=== PATIENT | female | born 1940 | race Caucasian/White ===

== ENCOUNTER 2016-11-21 09:09 | Emergency (ER) | payer MEDICARE ==
[~2016-11-21] VITALS: Ht 154.9 cm; Wt 68.2 kg
[~2016-11-21 09:09] MED LIST: ASPI81TA3 PO; ATOR20TA65 PO; HYDR-3797 PO; LIT300 PO; LITH600C PO; OMEP20TA24 PO
[2016-11-21 09:17] VITALS: BP 134/91; PULSE 83; RESP 18; O2SAT 93
--- NOTE | 2016-11-21 09:21 | ED.REPORT ---
HPI-Trauma Multiple Date of Service Nov 21, 2016 ED Provider: Gibran Childs MD Pt is a 76 y/o female with a hx of bipolar and arthritis who reports to the ER via EMS with blunt head trauma due to a ground level fall just prior to arrival. Pt was walking down an incline and slipped, falling to the ground. She presents with a laceration to her right upper cheek. Pt denies LOC, weakness , numbness, tingling, double vision, vision loss, and is not on anticoagulants. She was able to ambulate on scene and did not sustain any other injuries. Nursing Notes Stated Complaint: GLF Chief Complaint: Multiple Trauma/Fall Nursing Notes Reviewed: Yes Allergies: Coded Allergies: lorazepam (Verified Adverse Reaction, Severe, EXTREME AGITATION, 11/21/16) prednisone (Verified Adverse Reaction, Mild, BLEEDING, 11/21/16) Scheduled Aspirin Chew (Aspirin Chew) 81 Mg Tablet 324 MG PO DAILY Atorvastatin Calcium (Atorvastatin Calcium) 20 Mg Tablet 40 MG PO HS Hydroxyzine Pamoate (HydrOXYzine Pamoate) 25 Mg Capsule 50 PO HS [place] Carbonate ([place] Carbonate) 300 Mg Cap 300 MG PO MORNING [place] Carbonate ([place] Carbonate) 600 Mg Capsule 600 MG PO HS Omeprazole Magnesium (Prilosec Otc) 20 Mg Tablet.dr 20 MG PO HS General Time Seen by Provider: 10:20 Chief Complaint Head pain/injury Hx Obtained From: Patient, EMS Arrived By: Ambulance Onset Occurred: 1 - 4 hours ago Symptom Duration: Since onset Location: : Head Severity: Current: Mild Severity: Maximum: Mild Recent Healthcare: No recent doctor visit, No recent hospitalization Similar Sx Previous: No Past Medical History Past Medical History Notes: PCP: Blair Griffin Past Medical History osteoarthritis bipolar disorder anxiety Reports: GERD, Hypertension, Transient ischemic attack Reports: Depression Past Surgical History hernia repair finger amputations Smoking History Former Smoker Social History Alcohol Use: Denies alcohol use Drug Use: Denies drug use Other Social History: Poor social support, Local resident Ambulatory Status Independent Review of Systems Constitutional: Denies: Chills, Weakness - generalized Eyes: Denies: Diplopia, Visual loss bilateral Hematologic: Reports Bleeding (laceration to right lateral brow) Neurologic: Denies: Change LOC, Dizziness, Lightheaded, Numbness, Vision change , Weakness Complete sys rev & neg: except as marked. Physical Exam Initial Vital Signs Vital Signs (First) Date Time Temp Pulse Resp B/P Pulse Ox O2 Delivery O2 Flow Rate FiO2 11/21/16 09:17 36.1 83 18 134/91 93 Room Air Initial VS: Reviewed Skin: Warm, Dry, No cyanosis Psychiatric: Mood/affect normal, Behavior normal, Normal thought content General/Constitutional: Awake, Alert, No acute distress, Well appearing Head / Eyes: Normocephalic, PERRL, EOMI No signs of trauma to scalp. Superficial 1cm laceration to right lateral brow, dried blood, no foreign body. Dried blood below right eye. Midface is stable to compresion. Neck: Atraumatic, Supple, Full range of motion, No swelling, Non-tender, No midline vertebral tend, No crepitus No midline cervical tenderness, deformities, or no step offs Respiratory / Chest: Atraumatic, Breath sounds NL, Breath sounds = bilat, No respiratory distress, No rales, No rhonchi, No wheezing, No stridor, No chest tenderness, No chest wall deformity, No crepitus Cardiovascular: Heart rate NL, Regular rhythm, Heart sounds NL, No gallop, No murmurs, No rubs, Pulses = bilaterally Abdomen: Atraumatic, Soft, Non-tender, No guarding, No rebound, No distention Back: Atraumatic, Non-tender, No midline vertebral tend Neurologic: Oriented X3, Speech NL, No motor deficits, No sensory deficits ENT: Atraumatic (no intraoral trauma), Airway patent Mouth: Positive: Mucous membranes dry (mild) Upper Extremity / MS: No swelling, Non-tender, No deformity, Neurologic intact , Vascular intact Lower Extremity / Pelvis / MS: No swelling (no calf swelling), Non-tender (no calf swelling), No deformity, Neurologic intact, Vascular intact Procedures Laceration Management Time: 10:27 Procedure Performed by: ED physician Consent / Setup / Site Prep: Consent from patient, Time-out performed, Hand hygiene observed Location of Wound: right lateral brow Wound Length: 1 cm Wound Preparation: Normal saline Debridement: None Irrigation: Copious Foreign Body Explore / Removal: Explored for foreign body Repair Skin: Dermabond Closure Layers: 1 Post-Procedure / Complications: No complications, Condition improved, Tolerated procedure well, Patient stable Re-Eval/Medical Decision Med Decision/Clinical Course In summary, the patient is a 76-year-old female with a history of bipolar disorder on lithium but otherwise in generally excellent health who presents to the emergency department for evaluation of a laceration to her right brow that she sustained after slipping on an incline and striking her head. She did not lose consciousness and she has been alert/awake/oriented since the injury. She is not on any blood thinners. Examination reveals a superficial laceration to her right brow without any evidence of bony injury or deformity. Extraocular movements are intact and there is no evidence of ocular trauma. There is no evidence of significant head trauma nor did she have any neurologic deficits on complete neurologic examination. She is not on blood thinners and I do not feel that neuro imaging is indicated. The patient's pain was treated with Tylenol and her tetanus status was updated. The wound was copiously irrigated with sterile saline. There were no foreign bodies present and there was no evidence of neurovascular injury. The wound was closed using glue as documented above. She remained stable and in no apparent distress. At this time, I feel that she is appropriate for discharge home. The patient was provided with follow-up and return precautions and discharged in good condition. Re-Evaluation/Progress : Time of Eval: 10:31 Patient Status: Condition improved Re-Evaluation/Progress Note: Laceration procedure performed. Informed pt of plan for treatment. Pt understands and agrees with plan for treatment. F/U and RTER warnings given. All questions addressed. Counseled Regarding: Diagnosis, Need for follow-up, When/why to return to ED Discharge & Departure Impression: Primary Impression: Fall from ground level Additional Impressions: Minor head injury Encounter type: initial encounter Qualified Code: S00.90XA - Unspecified superficial injury of unspecified part of head, initial encounter Facial laceration Encounter type: initial encounter Qualified Code: S01.81XA - Laceration without foreign body of other part of head, initial encounter Disposition: Home Discharge Condition All VS Reviewed: Yes Condition: Stable Additional Instructions: Thank you for seeking care at emergency room. You were seen today for a laceration. This was cleaned and repaired with skin glue. Our primary goal today in the ED was to evaluate you for any life-threatening conditions. Your evaluation was reassuring. You should follow-up with your primary doctor in the next week. You should return to the ED immediately if you develop swelling/redness, bleeding, discharge from the cut, fevers, headache, vomiting, cough, shortness of breath, chest pain, lightheadedness, weakness or any other concerning signs or symptoms. Thank you for letting us partake in your care today. Referrals: Gen Gimenez MD (PCP) Cassie Attestation Portion of this note were transcribed by Oriana Sommers and Iván Molina. I, Dr. Childs, personally performed the history, physical exam, and medical decision-making: I reviewed and confirmed the accuracy for the information in the transcribed note. Signed by: Cassie Mary, 11/21/2016 0100 Signed by: Cassie Michele, 11/21/2016 0141 copies to: Gen Gimenez MD, Beck O MD Nov 21, 2016 09:21 IVÁN MOLINA Nov 21, 2016 10:12 Oriana Sommers Nov 21, 2016 10:23
[2016-11-21] MEDS ORDERED: TdaP Vaccine 0.5 mL Inj IM ONE (10:15)
[2016-11-21 11:06] VITALS: BP 134/91; PULSE 83; RESP 18; O2SAT 93
== END 2016-11-21 11:07 | disposition home or self-care (01) ==
LOC: EDUNIT# 09:09 → EDBD 09:09 → SED 09:09
DX: S01.81XA Laceration without foreign body of other part of head, initial encounter (principal); W01.0XXA Fall on same level from slipping, tripping and stumbling without subsequent striking against object, initial encounter; Y93.01 Activity, walking, marching and hiking; Y92.9 Unspecified place or not applicable; Y99.8 Other external cause status; Z23 Encounter for immunization; K21.9 Gastro-esophageal reflux disease without esophagitis; I10 Essential (primary) hypertension; Z86.73 Personal history of transient ischemic attack (TIA), and cerebral infarction without residual deficits; Z87.891 Personal history of nicotine dependence; Z79.82 Long term (current) use of aspirin; Z88.8 Allergy status to other drugs, medicaments and biological substances

== ENCOUNTER 2016-12-14 20:13 | Inpatient (IN) | payer MEDICARE ==
[~2016-12-14] VITALS: Ht 157.5 cm; Wt 67.8 kg
[2016-12-14 20:18] VITALS: BP 140/88; PULSE 97; RESP 22; O2SAT 96
[2016-12-14 21:01] LABS: BASOPHILS % (AUTO) 0.1 % (0-3); EOSINOPHILS % (AUTO) 0 % (0-5); MONOCYTES % (AUTO) 2.2 % (4-12); Mean Corpuscular Volume 88.6 fL (81-100); NEUTROPHILS % (AUTO) 94.2 % (40-74); Platelet Count 331 bil/L (150-400)
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
[2016-12-14 21:24] LABS: TROPONIN T < 0.010 ug/L (0.0-0.011)
[2016-12-14] MEDS ORDERED: 0.9% Sodium Chloride 1,000 ML IV ONE ×2 (21:25→22:50)
[2016-12-14 21:33] LABS: Creatine Kinase 185 U/L (21-215)
--- NOTE | 2016-12-14 21:37 | DRSVH ---
PROCEDURE: X-RAY CHEST ONE VIEW, PORTABLE ([id number]) INDICATIONS: fall TECHNIQUE: One view of the chest was acquired. COMPARISON: [facility], CR, XR CHEST 2VW, 11/14/2015, 9:44. FINDINGS: Surgical changes and devices: None. Lungs and pleura: No pleural effusions or pneumothorax. Lungs are clear. Mediastinum: Mediastinal contours appear normal. Heart size is normal. Bones and chest wall: No suspicious bony lesions. Overlying soft tissues appear unremarkable. IMPRESSION: No acute process. Dictated by: Phyllis Ames M.D. on 12/14/2016 at 21:35 Approved by: Phyllis Ames M.D. on 12/14/2016 at 21:36
--- NOTE | 2016-12-14 21:39 | DRSVH ---
PROCEDURE: CT BRAIN WITHOUT CONTRAST ([id number]) INDICATIONS: fall, also confusion pre-fall TECHNIQUE: Noncontrast 4.5 mm thick angled axial sections acquired from the foramen magnum to the vertex, with c oronal reformats. COMPARISON: [facility], MR, MR STROKE PROTOCOL, 11/15/2015, 14:02. [facility] al, CT, CT BRAIN WO CON, 11/14/2015, 9:11. FINDINGS: Image quality: Excellent. CSF spaces: Basal cisterns are patent. No extra-axial fluid collections. The ventricles are symmet marlin in size and shape. Brain: No intracranial bleeds or masses. There is cerebral volume loss for age, with resultant vent ricular and sulcal prominence. There are periventricular and deep white matter chronic small vessel ischemic changes. There is intracranial internal carotid artery atherosclerosis. Skull and face: Calvarium and visualized facial bones appear intact, without suspicious lesions. Sinuses: Visualized sinuses and mastoids are clear. IMPRESSION: 1. No acute intracranial abnormality. 2. Volume loss and small vessel ischemic disease. Dictated by: Phyllis Ames M.D. on 12/14/2016 at 21:36 Approved by: Phyllis Ames M.D. on 12/14/2016 at 21:37
[2016-12-14 23:05] VITALS: BP 134/76; PULSE 90; RESP 18; O2SAT 95
[2016-12-14] MEDS ORDERED: Alum-Mag Hydrox-Simeth 30 mL Suspension PO PRN (23:10)
[2016-12-14] MEDS ORDERED: Polyethylene Glycol (PEG) 17 Gm Powder PO PRN (23:10)
[2016-12-14] MEDS ORDERED: Ondansetron 2 mg/mL 2 mL Inj IVPUSH PRN (23:10)
[2016-12-15] VITALS (10 sets, daily range): BP systolic 118–162; BP diastolic 72–87; PULSE 59–74; RESP 16–18; O2SAT 96–98
[2016-12-15 00:03] LABS: APPEARANCE,URINE CLEAR (CLEAR,HAZY); COLOR,URINE YELLOW (YELLOW); OCCULT BLOOD,URINE NEGATIVE (NEGATIVE); UROBILINOGEN,URINE NORMAL (NORMAL)
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
[2016-12-15] MEDS: Lactated Ringer's 1,000 ML IV SCH ×3 (01:11→20:54)
--- NOTE | 2016-12-15 06:18 | NUR ---
Admit Pt arrived on floor around 0045, A&O but forgetful. Pt unable to provide any medication information, denies any pain.
[2016-12-15] MEDS: Pantoprazole 20 mg ER24 Tablet PO SCH (09:30)
[2016-12-15 09:45] LABS: BASOPHILS % (AUTO) 0.3 % (0-3); EOSINOPHILS % (AUTO) 1.9 % (0-5); MONOCYTES % (AUTO) 6.7 % (4-12); Mean Corpuscular Hemoglobin 30.1 pg (27.0-35.0); Mean Corpuscular Volume 90.5 fL (81-100); NEUTROPHILS % (AUTO) 80.9 % (40-74); Platelet Count 330 bil/L (150-400)
[2016-12-15 10:29] LABS: Magnesium 2.4 mg/dL (1.6-2.6); Phosphorus 1.8 mg/dL (2.5-4.9)
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
--- NOTE | 2016-12-15 15:44 | NUR ---
Impulsive Pt is forgetful and impulsive, does not seem to have an understanding as to why she is in the hospital. Harper alarm in place; pt does not reliably use call light. Frequent rounding and visual checks made. Pt has splint and sling to RUE, pt requires frequent reminders to not use RUE. Pt intermittently mistrusting/suspicious of staff, but is pleasant. [place] level 1.2 this morning.
[2016-12-15] MEDS: hydrOXYzine Pamoate 25 mg Capsule PO SCH (20:47)
[2016-12-16] VITALS (7 sets, daily range): BP systolic 121–181; BP diastolic 67–92; PULSE 55–81; RESP 15–18; O2SAT 94–99
--- NOTE | 2016-12-16 04:19 | NUR ---
CONFUSION Patient cooperative with care, however very confused thus unreliable to use call light. Sitter at bedside through out shift, confirms cooperation and inability to consistently use call light. BP 181/85 at 0244, at rest with a pulse of 59. Night Hospitalist paged (cook page). Denial of CP, SOB, abdominal discomfort at this time.
[2016-12-16] MEDS: Lactated Ringer's 1,000 ML IV SCH (06:07)
[2016-12-16] MEDS: Pantoprazole 20 mg ER24 Tablet PO SCH (06:08)
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
[2016-12-16] MEDS ORDERED: QUET50TA55 PO (15:08)
--- NOTE | 2016-12-16 15:13 | NUR ---
Confusion/Agitation Pt increasingly agitated this shift, disoriented and confused. Sitter at bedside having increased difficulty redirecting and deescalating patient. Dr. Elizalde notified x2, is now coming to evaluate pt. UA ordered, NA-C sitting with pt states will send after next pt void.
--- NOTE | 2016-12-16 15:51 | DRSVH ---
PROCEDURE: X-RAY RIGHT ELBOW COMPLETE, MINIMUM THREE VIEWS ([id number]) INDICATIONS: elbow pain. ? fracture on earlier xray TECHNIQUE: 3 views of the elbow were acquired. COMPARISON: [facility], , XR ELBOW COMP MIN 3VW RT, 12/03/2016, 16:36. FINDINGS: Bones: No fractures or dislocations. No suspicious bony lesions. Specifically, no evidence of medi al epicondyle fracture. Soft tissues: No elbow joint effusion. No suspicious soft tissue calcifications. IMPRESSION: No acute fracture. No osseous lesion. If clinical suspicion and/or symptoms persist, fur ther assessment with repeat plainfilms, or advanced imaging (e.g., CT, MRI, or bone scan) may be help ful for further assessment. Dictated by: Phyllis Ames M.D. on 12/16/2016 at 15:48 Approved by: Phyllis Ames M.D. on 12/16/2016 at 15:49
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
[2016-12-16 16:02] LABS: APPEARANCE,URINE CLEAR (CLEAR,HAZY); COLOR,URINE YELLOW (YELLOW); OCCULT BLOOD,URINE TRACE (NEGATIVE); UROBILINOGEN,URINE NORMAL (NORMAL)
--- NOTE | 2016-12-16 19:26 | NUR ---
UA sent. Pt received Seroquel and lithium, as ordered by . Pt continues to be confused, no longer agitated.
[2016-12-16] MEDS: hydrOXYzine Pamoate 25 mg Capsule PO SCH (22:40)
[2016-12-17 05:25] VITALS: BP 181/96; PULSE 64; RESP 18; O2SAT 100
--- NOTE | 2016-12-17 05:36 | NUR ---
Mentation Pt has had sitter at bedside tonight for safety. Pt is more aware of her surroundings and situation, cooperative with all care, asking appropriately for assistance. Able to ambulate to BR with SBA. Observed sleeping most of night. Continue with sitter for safety, reassess in am.
[2016-12-17 06:05] LABS: Mean Corpuscular Volume 91.3 fL (81-100)
[2016-12-17 06:15] VITALS: BP 164/96
[2016-12-17] MEDS: Pantoprazole 20 mg ER24 Tablet PO SCH (06:17)
--- NOTE | 2016-12-17 09:48 | NUR ---
Social Work: TK TK signed
[2016-12-17 10:49] VITALS: BP 163/86; PULSE 59; RESP 18; O2SAT 95
[2016-12-17 11:15] VITALS: PULSE 70
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
[2016-12-17 18:08] VITALS: BP 158/92; PULSE 79; RESP 20; O2SAT 96
--- NOTE | 2016-12-17 18:36 | DRSVH ---
PROCEDURE: CT ELBOW RIGHT W/O CONTRAST ([id number]) INDICATIONS: right elbow pain, ? fracture on earlier xray TECHNIQUE: Noncontrast 1-1.5 mm axial sections were acquired through the elbow joint, with coronal and sagittal reformats. COMPARISON: [facility], CR, XR ELBOW COMP MIN 3VW RT, 12/16/2016, 15:24. FINDINGS: Image quality: Suboptimal course of under penetration and unconventional positioning. Bones: The study is nondiagnostic for subtle fracture. Soft tissues: No soft tissue mass or hematoma. IMPRESSION: Suboptimal examination. Cannot rule out subtle fractures. Recommend repeat examination af ter removing cast and reposition if clinically indicated. Dictated by: Lorenzo Hui M.D. on 12/17/2016 at 18:31 Transcribed by: XI on 12/17/2016 at 18:36 Approved by: Lorenzo Hui M.D. on 12/18/2016 at 8:23
--- NOTE | 2016-12-17 18:42 | NUR ---
Orientation Pt. pleasant and cooperative today. Confused and oriented x1-x2 depending on time of day. This morning she knew her name, and date, but she thought she was in an office building and did not know why she was here. In the afternoon, she could specify she was in the hospital, but thought it was "1987", then "2017".
[2016-12-17 20:00] VITALS: PULSE 79
[2016-12-17] MEDS: hydrOXYzine Pamoate 25 mg Capsule PO SCH (21:11)
[2016-12-18 00:14] VITALS: BP 126/79; PULSE 63; RESP 18; O2SAT 96
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
[2016-12-18 05:06] VITALS: BP 157/92; PULSE 60; RESP 18; O2SAT 95
--- NOTE | 2016-12-18 06:41 | NUR ---
Mentation Pt has had sitter at bedside tonight for safety. Pt continues to be impulsive; cooperative with all care. Able to ambulate to BR with SBA. Observed sleeping most of night. Continue with sitter for safety, reassess in am.
[2016-12-18 07:10] LABS: Vitamin B12 >1999 pg/mL (211-946)
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
--- NOTE | 2016-12-18 07:49 | PCM.DIMED ---
Discharge Instructions Date of Service Dec 18, 2016 Dates of Hospitalization Dec 14, 2016 at 23:23 Discharge Diagnosis Discharge Diagnosis Bipolar disorder with lithium toxicity Test Results Laboratory Tests 72 Hours Test 12/15/16 09:30 12/16/16 05:47 12/16/16 15:49 12/17/16 05:05 White Blood Count 11.4th/mm3 (3.8-10.1) 7.8th/mm3 (3.8-10.1) Red Blood Count 4.82mil/mm3 (3.90-5.20) 4.80mil/mm3 (3.90-5.20) Hemoglobin 14.5g/dL (12.0-15.6) 14.4g/dL (12.0-15.6) Hematocrit 43.6% (35.0-46.0) 43.8% (35.0-46.0) Mean Corpuscular Volume 90.5fL (81-100) 91.3fL (81-100) Mean Corpuscular Hemoglobin 30.1pg (27.0-35.0) 30.0pg (27.0-35.0) Mean Corpuscular Hemoglobin Concent 33.3% (32.0-37.0) 32.9% (32.0-37.0) Red Cell Distribution Width 14.2% (12.3-15.4) 14.4% (12.3-15.4) Platelet Count 330bil/L (150-400) 331bil/L (150-400) Neutrophils (%) (Auto) 80.9% (40-74) Lymphocytes (%) (Auto) 10.1% (14-46) Monocytes (%) (Auto) 6.7% (4-12) Eosinophils (%) (Auto) 1.9% (0-5) Basophils (%) (Auto) 0.3% (0-3) Sodium Level 141mEq/L (134-144) Potassium Level 4.8mEq/L (3.5-5.2) Chloride Level 108mEq/L (97-108) Carbon Dioxide Level 22mmol/L (18-29) Blood Urea Nitrogen 10mg/dL (8-27) Creatinine 0.67mg/dL (0.57-1.00) Estimat Glomerular Filtration Rate 123mL/min (>59) Glucose Level 121mg/dL (60-99) Calcium Level 9.7mg/dL (8.5-10.1) Phosphorus Level 1.8mg/dL (2.5-4.9) Magnesium Level 2.4mg/dL (1.6-2.6) Combs Level 1.2mEq/L (0.5-1.5) Hold Purple Top Tube Received (Received) Hold [place] Top Tube Received (Received) Urine Color Yellow (YELLOW) Urine Appearance Clear (CLEAR,HAZY) Urine pH 7.0 (5.0-8.0) Urine Specific [place] 1.015 (1.003-1.035) Urine Protein Negativemg/dL (NEG,TRACE) Urine Glucose (UA) Negativemg/dL (NEGATIVE) Urine Ketones Negativemg/dL (NEGATIVE) Urine Occult Blood Trace (NEGATIVE) Urine Nitrite Negative (NEGATIVE) Urine Bilirubin Negative (NEGATIVE) Urine Urobilinogen Normalmg/dL (NORMAL) Urine Leukocyte Esterase Small (NEGATIVE) Urine RBC 0-2/hpf (0-2) Urine WBC 6-10/hpf (0-5) Urine Epithelial Cells Few/hpf (NONE-MOD) Urine Crystals None seen (NONE SEEN) Urine Bacteria Few/hpf (NONE-FEW) Urine Hyaline Casts None/lpf (NONE) Urine Granular Casts None seen (NONE SEEN) Urine Waxy Casts None seen (NONE SEEN) Urine Red Blood Cell Casts None seen (NONE SEEN) Urine White Blood Cell Casts None seen (NONE SEEN) Urine Mucus None seen (None Seen) Urine Trichomonas None seen (NONE SEEN) Urine Yeast None (NONE SEEN) Urinalysis Comment None Urine Culture Reflexed Indicated Vitamin B12 Level >1999pg/mL (211-946) Folate 14.3ng/mL (>3.0) Thyroid Stimulating Hormone (TSH) 2.380uIU/mL (0.450-4.500) Free Thyroxine 0.95ng/dL (0.82-1.77) Rapid Plasma Reagin Non reactive (Non Reactive) Diet No restrictions Activity Limited until seen by PCP Call your provider Fever or Chills, Shortness of breath, Chest pain, Vomitting, Excessive diarrhea , Weakness (unilateral) Patient Instructions Follow-up with PCP in: Other Rose Soto MD Dec 18, 2016 07:49
[2016-12-18] MEDS ORDERED: LIT300 PO (07:51)
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
--- NOTE | 2016-12-18 07:57 | NUR ---
Ambulate w/Nsg; D/C from PT Pt is released to ambulate w/nsg w/o AD SBA 2-3x/day as pt tolerates; has met all goals and is discharged from further PT at this time.
[2016-12-18 08:09] VITALS: BP 157/93; PULSE 56; RESP 18; O2SAT 95
[2016-12-18] MEDS: Pantoprazole 20 mg ER24 Tablet PO SCH (08:19)
--- NOTE | 2016-12-18 10:20 | NUR ---
Tele Removing pt from telemetry; pt to be discharged. technician automatic notified.
--- NOTE | 2016-12-18 13:22 | NUR ---
Social Work Readiness for Discharge: SW met with patient at bedside to discuss discharge plan. Therapy recommendations discussed with patient for C PT for 24hr care and support. Patient aware of C recommendations and in agreement. SW discussed 24hr care and support and estimate costs with caregiver support. Patient unsure if payment able to be arranged but contact to family to be made. SW contacted patient son Gian, and daughter Sonja, to discuss HHC and 24hr support and supervision. [facility] choice list provided at bedside. Choice as [facility]. Patient family contacted [facility] and family states being unable to financially afford. Patient family to check in daily to care and assist with patient needs as they will be unable to financially afford private duty caregiver services. SW initiated [facility] referral for additional care and assistance. Medicaid discussed for long term care administrator care with family. [facility] rep Leo aware of discharge today and to initiate care services 24-48hrs following discharge. No other needs identified at this time. SW to follow. PLAN: Home with [facility] via [facility] and [facility] referral initiated for caregiver support. Family to provide transport home via POV. SW to follow as further needs arise. Andre TOMLINSON Addendum: 12/18/16 at 1613 by JOSELYN ELLISON Order for discharge acknowledged. HARPAL spoke to patient dana Springer who to assist with transport home today around 5pm. Andre TOMLINSON
--- NOTE | 2016-12-18 19:34 | NUR ---
Discharge Pt discharged to home with family via private vehicle at 1900 hrs. PIV removed intact. VSS. No complaints of pain. All personal item sent with pt. Discharge and follow up instructions given to pt and she expressed understanding.
== END 2016-12-18 19:00 | disposition home or self-care (01) | DRG 918 ==
LOC: SED 20:13 → OSC 23:23
PROVIDERS: ADMIT Internal Medicine; ATTEND Internal Medicine
DX: T56.891A Toxic effect of other metals, accidental (unintentional), initial encounter (principal); Y92.019 Unspecified place in single-family (private) house as the place of occurrence of the external cause; W19.XXXA Unspecified fall, initial encounter; Z91.81 History of falling; Y93.9 Activity, unspecified; Y99.9 Unspecified external cause status; Z86.73 Personal history of transient ischemic attack (TIA), and cerebral infarction without residual deficits; Z79.82 Long term (current) use of aspirin; Z87.891 Personal history of nicotine dependence; F31.9 Bipolar disorder, unspecified; D72.829 Elevated white blood cell count, unspecified; Z66 Do not resuscitate

== ENCOUNTER 2017-07-28 18:16 | Emergency (ER) | payer MEDICARE ==
[~2017-07-28] VITALS: Ht 157.5 cm; Wt 70.9 kg
[~2017-07-28 18:16] MED LIST changes: -LITH600C PO; +QUET50TA55 PO
[2017-07-28 18:34] VITALS: BP 144/93; PULSE 77; RESP 18; O2SAT 99
--- NOTE | 2017-07-28 20:07 | ED.REPORT ---
HPI-General Illness Date of Service Jul 28, 2017 ED Provider: Gibran Childs MD The pt is a 76 year old female with a history of hypertension, TIA, bipolar disorder and anxiety who presents to the ED complaining of vaginal bleeding. The pt used the restroom this evening and noticed "a good amount of" blood with clots in the toilet. She denies abdominal pain, urinary frequency, fever, chills or weight loss. The pt has not experienced vaginal bleeding since menopause at age 50. She has not experienced similar symptoms before. She is not on blood thinners. She denies any pain. Nursing Notes Stated Complaint: HEMMORRHAGING Chief Complaint: General Complaint Nursing Notes Reviewed: Yes Allergies: Coded Allergies: prednisone (Verified Adverse Reaction, Mild, BLEEDING, 11/21/16) Scheduled Aspirin Chew (Aspirin Chew) 81 Mg Tablet 324 MG PO DAILY Atorvastatin Calcium (Atorvastatin Calcium) 20 Mg Tablet 40 MG PO HS Hydroxyzine Pamoate (HydrOXYzine Pamoate) 25 Mg Capsule 50 PO HS [place] Carbonate ([place] Carbonate) 300 Mg Cap 300 MG PO BID Omeprazole Magnesium (Prilosec Otc) 20 Mg Tablet.dr 20 MG PO HS Quetiapine Fumarate (Quetiapine Fumarate) 50 Mg Tablet 50 MG PO HS General Time Seen by MD: 20:04 Chief Complaint Other (Vaginal bleeding) Hx Obtained From: Patient Arrived By: Walk-in Sudden in Onset?: Yes Onset Occurred: 1 - 4 hours ago Symptom Duration: Since onset Recent Healthcare: Recent doctor visit, Recent hospitalization Similar Sx Previous: No Past Medical History Past Medical History Notes: PCP: Blair Griffin admit in 2012 for [place] toxicity Past Medical History osteoarthritis bipolar disorder anxiety Reports: GERD, Hypertension, Transient ischemic attack Reports: Depression Past Surgical History hernia repair finger amputations Smoking History Former Smoker Social History Alcohol Use: Denies alcohol use Drug Use: Denies drug use Other Social History: Poor social support, Local resident Ambulatory Status Independent Review of Systems Full Review of Systems Constitutional: Denies: Chills, Fever, Recent wt loss Respiratory: Denies: Non-productive cough, Shortness of breath Cardiovascular: Denies: Chest pain GI: Denies: Abdominal pain, Nausea, Vomiting Female: Reports: Vaginal bleeding - abnl, Denies: Urinary frequency Musculoskeletal: Denies: Back pain, Neck pain Skin: Denies Rash Complete sys rev & neg: except as marked. Physical Exam Vital Signs Vital Signs Date Time Temp Pulse Resp B/P Pulse Ox O2 Delivery O2 Flow Rate FiO2 07/28/17 23:51 70 18 127/94 100 Room Air 07/28/17 18:34 37.4 77 18 144/93 99 Room Air Initial VS: Reviewed General/Constitutional: Awake, Alert answering questions appropriately Head / Eyes: Atraumatic, Normocephalic, PERRL, EOMI ENT: Atraumatic, Airway patent, Mucous membranes moist Neck: Atraumatic, Supple, Full range of motion Respiratory / Chest: Atraumatic, Breath sounds NL, Breath sounds = bilat, No respiratory distress Cardiovascular: Heart rate NL, Regular rhythm, Heart sounds NL, No gallop, No murmurs, No rubs strong distal pulses Abdomen: Atraumatic, Soft, Non-tender, No distention Back: Atraumatic, Full range of motion Upper Extremities Upper Extremity / MS: Atraumatic, Full range of motion Lower Extremity / Pelvis / MS: Atraumatic, Full range of motion Skin: Atraumatic, Color NL, No rash, Warm, Dry Female Genitourinary: Case Packer And Sealer present, External genitalia NL, Os closed vaginal atrophy scant blood present in the vaginal canal cervix closed Rectum / Perineum: Atraumatic, No gross blood, No discharge Neurologic: Oriented X3, Speech NL, No motor deficits, No sensory deficits Psychiatric: Affect NL, Mood NL Interpretation & Diagnostics Interpretation & Diagnostics: Pelvis US: IMPRESSION: 1. Uterus is not well seen. Endometrial echo is not prominent and the uterus is atrophic in appearance. The limited imaging suggests an echogenic focus in the posterior superior aspect of the uterus which may be an calcified fibroid. The appearance does not suggest endometrial cancer. 2. Prominent amount of peristalsis in the adnexa. Neither ovary is identified. No free fluid is seen no masses are seen. Dictated by: Jaylen Cortez M.D. on 07/28/2017 at 20:17 Approved by: Jaylen Cortez M.D. on 07/28/2017 at 20:22 Lab Results Interpretation Result Diagram: 07/28/17201407/28/17 2015 Test 07/28/17 20:15 White Blood Count 13.1th/mm3 (3.8-10.1) Red Blood Count 5.10mil/mm3 (3.90-5.20) Hemoglobin 15.2g/dL (12.0-15.6) Hematocrit 44.7% (35.0-46.0) Mean Corpuscular Volume 87.6fL (81-100) Mean Corpuscular Hemoglobin 29.8pg (27.0-35.0) Mean Corpuscular Hemoglobin Concent 34.0% (32.0-37.0) Red Cell Distribution Width 13.6% (12.3-15.4) Platelet Count 286bil/L (150-400) Neutrophils (%) (Auto) 72.8% (40-74) Lymphocytes (%) (Auto) 16.7% (14-46) Monocytes (%) (Auto) 7.6% (4-12) Eosinophils (%) (Auto) 2.4% (0-5) Basophils (%) (Auto) 0.3% (0-3) Sodium Level 138mEq/L (134-144) Potassium Level 4.6mEq/L (3.5-5.2) Chloride Level 101mEq/L (97-108) Carbon Dioxide Level 23mmol/L (18-29) Blood Urea Nitrogen 23mg/dL (8-27) Creatinine 0.72mg/dL (0.57-1.00) Estimat Glomerular Filtration Rate 113mL/min (>59) Glucose Level 98mg/dL (60-99) Calcium Level 9.7mg/dL (8.5-10.1) Total Bilirubin 0.6mg/dL (0.0-1.2) Aspartate Amino Transf (AST/SGOT) 31U/L (0-50) Alanine Aminotransferase (ALT/SGPT) 20U/L (0-32) Alkaline Phosphatase 131U/L (25-165) Total Protein 7.2g/dL (6.4-8.4) Albumin 4.4g/dL (3.4-5.0) Hold Dye Top Tube Received (Received) CT Head Interpretation CONCLUSION: Diffuse atrophy and periventricular white matter disease (Leukoaraiosis) without CT evidence of acute intracranial pathology at this time. This report was transmitted to the emergency room at 07/28/2017 - 10:27:21 PM PDT. Interpretation / Wet Read by: Interpret - Radiologist CT Abd / Pelvis Interpretation CONCLUSION: There is a hernia involving the abdominal wall in the right lower quadrant containing a loop of small bowel. There is also an adjacent right inguinal hernia. These appear to be contiguous and do not appear to be resulting in any bowel obstruction at this time. The uterus is atrophic but demonstrates prominent uterine veins. Interpretation / Wet Read by: Interpret - Radiologist Re-Eval/Medical Decision Med Decision/Clinical Course The pt is a 76 year old female with a history of hypertension, TIA, bipolar disorder and anxiety who presents to the ED complaining of vaginal bleeding. The pt used the restroom this evening and noticed "a good amount of" blood with clots in the toilet. She denies abdominal pain, urinary frequency, fever, chills or weight loss. The pt has not experienced vaginal bleeding since menopause at age 50. She has not experienced similar symptoms before. She is not on blood thinners. She denies any pain. Here in the emergency department the patient is afebrile stable vital signs and examination as above. Pelvic examination reveals a normal/closed cervix with scant blood present in the vagina. Auditory studies notable as below: Leukocytosis 13.1 CBC otherwise unremarkable CMP unremarkable Pelvis US: IMPRESSION: 1. Uterus is not well seen. Endometrial echo is not prominent and the uterus is atrophic in appearance. The limited imaging suggests an echogenic focus in the posterior superior aspect of the uterus which may be an calcified fibroid. The appearance does not suggest endometrial cancer. 2. Prominent amount of peristalsis in the adnexa. Neither ovary is identified. No free fluid is seen no masses are seen. CT Abdomen/Pelvis: CONCLUSION: There is a hernia involving the abdominal wall in the right lower quadrant containing a loop of small bowel. There is also an adjacent right inguinal hernia. These appear to be contiguous and do not appear to be resulting in any bowel obstruction at this time. The uterus is atrophic but demonstrates prominent uterine veins. Patient remained hemodynamically stable and in no apparent distress. No significant active bleeding. Imaging studies as above and pelvic examinations do not reveal source of the patient's bleeding. Patient was discussed with OB/ [facility] DIRECTOR and it was felt that she would be appropriate for further outpatient workup. They would like to see her in their clinic and a referral has been placed. She will call on Saturday to arrange for an appointment. He will likely perform further workup including endometrial biopsy. The patient is comfortable with this plan and denies any discomfort. She is advised to return right away should she develop increasing bleeding, pain or other concerning signs or symptoms. All questions were answered prior to discharge. Prior to discharge follow-up and return precautions were reviewed in detail with the patient who verbalized understanding and agreement with the plan. The patient was discharged in stable condition. Time of Eval: 21:53 Patient Status: Condition improved Re-Evaluation/Progress Note: Pt rechecked, who is stable. Rectal and pelvic exam are performed. Need for CT scan is discussed. Time of Eval: 23:28 Patient Status: Condition improved Re-Evaluation/Progress Note: Pt rechecked, who is comfortable. The diagnosis and plan for discharge are discussed. The pt understands and agrees with the plan. All questions are addressed at this time. Consultation : Referral / Consult Name: David Singh MD Call Returned at: 23:20 Outpatient Surgery Rn: Will see in office, Agrees with eval, Agrees with plan Note: Spoke with Dr. Singh, [facility] CHL[facility] OPERATOR, regarding pt's case. Dr. Singh agrees with the evaluation and agrees to seen the pt in follow up. He believes that outpatient follow up is appropriate. Counseled Regarding: Diagnosis, Lab results, Need for follow-up, When/why to return to ED Discharge & Departure Primary Impression: Vaginal bleeding Additional Impression: Postmenopausal bleeding Disposition: Home Discharge Condition All VS Reviewed: Yes Condition: Stable Additional Instructions: Thank you for seeking care at the emergency room. Our primary goal today in the Emergency Department was to evaluate you for any life-threatening conditions. Your evaluation was reassuring. You should follow-up with your primary doctor in the next week. Call in the morning to arrange a follow up appointment with [facility]PR[facility] CHLORIDE OPERATOR. You may need an endometrial biopsy so discuss this during follow up. You should return to the Emergency Department immediately if you develop worsening bleeding, fevers, vomiting, cough, shortness of breath, chest pain, lightheadedness, weakness or any other concerning signs or symptoms. Thank you for letting us partake in your care today. Referrals: Gen Gimenez MD (PCP) David Singh MD Scribe Attestation Portions of this note were transcribed by Chris Xie. I, Dr. Childs personally performed the history, physical exam and medical decision-making; I reviewed and confirmed the accuracy of the information in the transcribed note. copies to: David Singh MD; Gen Gimenez MD, Beck O MD Jul 28, 2017 20:07 CHRIS XIE Jul 28, 2017 21:27 Jul 29, 2017 00:00
--- NOTE | 2017-07-28 20:24 | DRSVH ---
PROCEDURE: US PELVIC SONOGRAM + TRANSVAGINAL SONOGRAM INDICATIONS: vaginal bleeding ? uterine ca TECHNIQUE: Real-time scanning was performed of the pelvic organs, with image documentation. Additional endovagi nal scanning was necessary due to incomplete visualization of the adnexal and endometrial structures by transabdominal scanning. COMPARISON: None. FINDINGS: Transabdominal scanning: Limited scanning through the kidneys shows no hydronephrosis. No pathologi c free abdominal or pelvic fluid. Endovaginal scanning: Uterus: Uterus is atrophic consistent with the patient's age. It measures 3.9 x 2.3 x 2.0 cm. The en dometrium measures 3.7 mm in combined thickness. Ovaries: No ovary is identified. o . IMPRESSION: 1. Uterus is not well seen. Endometrial echo is not prominent and the uterus is atrophic in appearanc e. The limited imaging suggests an echogenic focus in the posterior superior aspect of the uterus whi ch may be an calcified fibroid. The appearance does not suggest endometrial cancer. 2. Prominent amount of peristalsis in the adnexa. Neither ovary is identified. No free fluid is seen no masses are seen. Dictated by: Jaylen Cortez M.D. on 07/28/2017 at 20:17 Approved by: Jaylen Cortez M.D. on 07/28/2017 at 20:22
[2017-07-28 20:27] LABS: BASOPHILS % (AUTO) 0.3 % (0-3); EOSINOPHILS % (AUTO) 2.4 % (0-5); MONOCYTES % (AUTO) 7.6 % (4-12); Mean Corpuscular Hemoglobin 29.8 pg (27.0-35.0); Mean Corpuscular Volume 87.6 fL (81-100); NEUTROPHILS % (AUTO) 72.8 % (40-74); Platelet Count 286 bil/L (150-400)
[2017-07-28 23:51] VITALS: BP 127/94; PULSE 70; RESP 18; O2SAT 100
--- NOTE | 2017-07-29 08:49 | DRSVH ---
PROCEDURE: CT ABDOMEN AND PELVIS WITH CONTRAST ([id number]) INDICATIONS: vag bleed, US inconclusive TECHNIQUE: After the administration of intravenous contrast, 5 mm thick sections acquired from the diaphragm to the symphysis. 5 mm coronal and sagittal reformats were acquired. For radiation dose reduction, the following was used: automated exposure control, adjustment of mA and/or kV according to patient siz e. COMPARISON: Pelvic sonogram 07/28/2017 FINDINGS: Preliminary report by night shift supervisor radiology Image quality: Excellent. ABDOMEN: Lung bases: Lung bases are clear. Heart size is normal. Hiatal hernia. Solid organs: Liver and spleen are normal in size and enhancement. Gallbladder appears normal. Aldo iary system is non dilated. Pancreas enhances normally. No adrenal nodules. Kidneys demonstrate no rmal size and enhancement, without hydronephrosis. Peritoneum and bowel: Bowel loops demonstrate normal wall thickness and caliber. No free fluid or a ir. Nodes and vessels: No retroperitoneal or mesenteric adenopathy by size criteria. Aorta is tortuous with atheromatous calcifications but no aneurysm. The inferior vena cava is normal in size. Miscellaneous: A right inguinal hernia contains mesenteric fat and a loop of nonobstructed small bessy l. Lateral to that is a right lower quadrant ventral hernia again containing nonobstructed small bessy l. PELVIS: Genitourinary: Bladder wall thickness is normal. Uterus is atrophic. Prominent periuterine vessels. No adnexal pathology. Miscellaneous: No inguinal hernias or adenopathy. Bones: No suspicious bony lesions. No vertebral body compression fractures. IMPRESSION: 1. Hiatal hernia. 2. Right inguinal and right lower quadrant ventral hernia is containing nonobstructed small bowel. 3. Atrophic uterus. Prominent periuterine vessels. Findings are concordant with the preliminary report. Dictated by: Kaleb Byers M.D. on 07/29/2017 at 8:33 Approved by: Kaleb Byers M.D. on 07/29/2017 at 8:47
== END 2017-07-28 23:52 | disposition home or self-care (01) ==
LOC: SED 18:16
DX: N93.9 Abnormal uterine and vaginal bleeding, unspecified (principal); N95.0 Postmenopausal bleeding; I10 Essential (primary) hypertension; K21.9 Gastro-esophageal reflux disease without esophagitis; Z87.891 Personal history of nicotine dependence; Z79.82 Long term (current) use of aspirin; Z86.73 Personal history of transient ischemic attack (TIA), and cerebral infarction without residual deficits; Z88.8 Allergy status to other drugs, medicaments and biological substances
CPT/HCPCS: 36415; 74177; 76830; 76856; 80053; 85025; 99284; Q9967